=== PATIENT | female | born 1970 | race Caucasian/White ===

== ENCOUNTER 2018-07-13 14:03 | Emergency (ER) | payer SELFPAY ==
[2018-07-13 14:09] VITALS: BMI 34.5
--- NOTE | 2018-07-13 15:24 | ED PDOC ---
HPI: General Adult Time Seen by Provider: 07/13/18 14:29 Chief Complaint (Nursing): Upper Extremity Problem/Injury Chief Complaint (Provider): Extremity Pain History Per: Patient History/Exam Limitations: no limitations Onset/Duration Of Symptoms: Other (x3 months) Current Symptoms Are (Timing): Still Present Additional Complaint(s): Patient is a 48 y/o female with no significant PMHx who presents to the ED for evaluation of left arm, shoulder, and leg pain for the past three months. Patient reports her symptoms are exacerbated on movement. Patient states she has been taking Tylenol with no relief of symptoms. Patient denies weakness, swelling, and recent injury. PCP: None Past Medical History Reviewed: Historical Data, Nursing Documentation, Vital Signs Vital Signs: Last Vital Signs Temp 98.5 F 07/13/18 14:09 Pulse 66 07/13/18 14:09 Resp 17 07/13/18 14:09 BP 131/84 07/13/18 14:09 Pulse Ox 96 07/13/18 14:09 Primary Care Provider: FAMILY PROVIDER,NO - Medical History PMH: No Chronic Diseases - Surgical History Surgical History: No Surg Hx - Family History Family History: States: Unknown Family Hx - Immunization History Hx Tetanus Toxoid Vaccination: No Hx Influenza Vaccination: No Hx Pneumococcal Vaccination: No - Home Medications Home Medications: Ambulatory Orders Medication Instructions Recorded miSOPROStol [Cytotec] 800 mcg VAG ONCE #4 tab 07/19/15 - Allergies Allergies/Adverse Reactions: Allergies Allergy/AdvReac Type Severity Reaction Status Date / Time No Known Allergies Allergy Verified 09/10/15 12:11 Review of Systems ROS Statement: Except As Marked, All Systems Reviewed And Found Negative Musculoskeletal: Positive for: Shoulder Pain (left), Arm Pain (left), Leg Pain (left lower) Neurological: Negative for: Weakness Physical Exam - Reviewed Nursing Documentation Reviewed: Yes Vital Signs Reviewed: Yes - Physical Exam Appears: Positive for: No Acute Distress Head Exam: Positive for: ATRAUMATIC, NORMAL INSPECTION, NORMOCEPHALIC Skin: Positive for: Normal Color, Warm, DRY Eye Exam: Positive for: EOMI, Normal appearance, PERRL Neck: Positive for: Normal, Painless ROM Cardiovascular/Chest: Positive for: Regular Rate, Rhythm. Negative for: Murmur Respiratory: Positive for: Normal Breath Sounds. Negative for: Respiratory Distress Pulses-Dorsalis Pedis (L): 2+ Pulses-Dorsalis Pedis (R): 2+ Pulses-Radial (L): 2+ Pulses-Radial (R): 2+ Extremity: Positive for: Normal ROM (of left arm and shoulder with pain; limited ROM of left lower leg secondary to pain), Calf Tenderness (to left lower leg), Capillary Refill (less than 2 seconds). Negative for: Tenderness, Pedal Edema, Deformity, Swelling, Other (redness or ecchymosis) Neurological/Psych: Positive for: Awake, Alert, Oriented (x3) - ECG O2 Sat by Pulse Oximetry: 96 (RA) Pulse Ox Interpretation: Normal Medical Decision Making Medical Decision Making: Time: 1458 Impression: Chronic Left Arm Pain and Acute Left Leg Pain DDx includes but not limited to arthritis for arm and shoulder pain and DVT for leg pain. Plan: Toradol 30 mg IM Shoulder Left [Rad] Duplex Lower Extrm Vein Left [US] Time: 1600 Patient endorsed from provider to Amina Renee MD. Pending Shoulder Xray and US. Scribe Attestation: Documented by Lalito Milian, acting as a scribe Keyana Borden MD. Provider Scribe Attestation: All medical record entries made by the Scribe were at my direction and personally dictated by me. I have reviewed the chart and agree that the record accurately reflects my personal performance of the history, physical exam, medical decision making, and the department course for this patient. I have also personally directed, reviewed, and agree with the discharge instructions and disposition. Disposition - Disposition Forms: [employer] (Bruneian)
--- NOTE | 2018-07-13 16:00 | ED PDOC ---
- ECG O2 Sat by Pulse Oximetry: 96 (RA) Pulse Ox Interpretation: Normal Medical Decision Making Medical Decision Making: Time: 1600 Patient endorsed to provider from Ann Borden MD. Pending shoulder x-ray and US. Shoulder x-ray FINDINGS: BONES: No fracture. A benign appearing radiolucency projects over the left glenoid bordering the left anterior glenoid rim a developmental variant or a small incidental benign intraosseous cyst here is believed most likely. JOINTS: . Glenohumeral and acromioclavicular minimal-mild arthrosis SOFT TISSUES: Normal. OTHER FINDINGS: None. IMPRESSION: No fracture or lytic lesion. Other findings as above. 16:52 Extremity US FINDINGS: 2-D, color and duplex Doppler analysis of the lower extremity venous circulation using routine protocol from the femoral veins through the popliteal veins. Venous compressibility: Normal. Flow and augmentation patterns: Normal. Visualized veins upper third of calf: Normal. Dixon cyst: None. IMPRESSION: No sonographic or Doppler evidence for DVT in left lower extremity. 18:00 Patient aware of results, requires no further treatment at this time and is stable for discharge. Return precaution provided. Follow up with clinic. Scribe Attestation: Documented by Lalito Milian, acting as a scribe forAmina Renee MD. Provider Scribe Attestation: All medical record entries made by the Scribe were at my direction and personally dictated by me. I have reviewed the chart and agree that the record accurately reflects my personal performance of the history, physical exam, medical decision making, and the department course for this patient. I have also personally directed, reviewed, and agree with the discharge instructions and disposition. Disposition - Clinical Impression Clinical Impression: Arm pain - POA Present On Arrival: None - Disposition Referrals: [facility] [Outside] [facility] [Outside] Disposition: Routine/Home Disposition Time: 18:00 Condition: IMPROVED Additional Instructions: follow up with the clinic in 1-2 days take motrin for pain as needed return to the ED with any worsening or concerning symptoms Prescriptions: Ibuprofen [Motrin] 600 mg PO Q6H PRN #20 tab PRN Reason: Pain, Moderate (4-7) Instructions: Muscle Strain Forms: [employer] (Kazakh), [employer] (Nigerian) Print Language: ROMANSH
--- NOTE | 2018-07-13 16:02 | RAD ---
Date of service: 07/13/2018 PROCEDURE: Radiographs of the Left Shoulder HISTORY: left shoulder pain COMPARISON: No prior. TECHNIQUE: 3 views obtained. FINDINGS: BONES: No fracture. A benign appearing radiolucency projects over the left glenoid bordering the left anterior glenoid rim a developmental variant or a small incidental benign intraosseous cyst here is believed most likely. JOINTS: . Glenohumeral and acromioclavicular minimal-mild arthrosis SOFT TISSUES: Normal. OTHER FINDINGS: None. IMPRESSION: No fracture or lytic lesion. Other findings as above.
--- NOTE | 2018-07-13 16:55 | US ---
Date of service: 07/13/2018 HISTORY: left lower leg pain. PRIORS: None. FINDINGS: 2-D, color and duplex Doppler analysis of the lower extremity venous circulation using routine protocol from the femoral veins through the popliteal veins. Venous compressibility: Normal. Flow and augmentation patterns: Normal. Visualized veins upper third of calf: Normal. Dixon cyst: None. IMPRESSION: No sonographic or Doppler evidence for DVT in left lower extremity.
[2018-07-13 18:04] VITALS: BP 134/83; PULSE 61; RESP 18; TEMP 98.6
[2018-07-18 02:42] VITALS: O2SAT 96
== END 2018-07-13 19:14 | disposition home or self-care (01) ==
LOC: H.ER 14:03
DX: M79.602 Pain in left arm (principal)
CPT/HCPCS: 73030; 81025; 93971; 96372; 99283; J1885